=== PATIENT | male | born 1940 | race Caucasian/White ===

== ENCOUNTER 2024-05-09 13:32 | Outpatient (RCR) | payer MEDICARE, BC, SELFPAY ==
--- NOTE | 2024-04-27 15:15 | CTCSNOTE_ITS ---
[facility] [address] [place], [place] [address] CT Simulation Note Date: 04/27/2024 MR# [id number] Name: KEVIN GALVIN : 1940 (A) DIAGNOSIS: C61 Malignant neoplasm of prostate (B) Patient was placed in supine position and used vaklok for immobilization purposes. (C) CT slices included pelvis (D) VMAT Will be needed for maximum sparing of adjacent normal critical structures. (E) Patient tolerated the simulation well and left the room in good condition. Electronically signed by: Lionel Aguayo MD, CHANTELLR 04/27/2024 3:13 PM
== END 2024-05-13 23:59 | disposition home or self-care (01) ==
LOC: SCTC 13:32
PROVIDERS: PCP Family Medicine; Referring Provider Family Medicine; Visit Provider Radiology Therapeutic Radiology
DX: Z51.0 Encounter for antineoplastic radiation therapy (principal); C61 Malignant neoplasm of prostate; G89.3 Neoplasm related pain (acute) (chronic)
CPT/HCPCS: 77014; 77290; 77300; 77301; 77334; 77336; 77338; 77385

== ENCOUNTER 2024-05-23 14:22 | Outpatient (RCR) | payer MEDICARE, BC, SELFPAY ==
--- NOTE | 2024-05-23 15:35 | CTCTSUMM_ITS ---
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 (B) Concomitant Chemotherapy: No (C) Radiation Dates: 05/03/2024 through 05/09/2024 Treatment Prescription pelvis VMAT 10MV 2,000 cGy 5 400 cGy Approved (D) All garcia were treated using customized MLC Blocks (E) Finding at Discharge: Patient's pain symptoms have improved as his bowel symptoms. (F) Discharge Instructions and F/U Appt was given: The patient was also advised to continue follow-up with Dr. Lester and primary care physician: Dr. Vadim Evans. CC: Vadim Evans MD (f) [phone] Electronically signed by: Lionel Aguayo MD, DABR 05/23/2024 3:33 PM
== END 2024-06-13 23:59 | disposition home or self-care (01) ==
LOC: SCTC 14:22
PROVIDERS: PCP Family Medicine; Referring Provider Family Medicine; Visit Provider Radiology Therapeutic Radiology
DX: C61 Malignant neoplasm of prostate (principal); C79.51 Secondary malignant neoplasm of bone
CPT/HCPCS: 99212; G0463

== ENCOUNTER 2024-09-06 10:32 | Outpatient (RCR) | payer MEDICARE, BC, SELFPAY ==
--- NOTE | 2024-09-06 11:35 | CTCFLWUP_ITS ---
[facility] [address] [place], [place] [address] FOLLOW-UP NOTE Date: 09/06/2024 MR#: [id number] Name: KEVIN GALVIN : 1940 Dx: C61 Malignant neoplasm of prostate Identification. Patient with history of prostate CA treated with external beam 2016 at [facility]. Noted to be biochemically recurring underwent radical prostatectomy [facility] 10/29/2000. Showed mets and patient had XRT Group 5 (4+5 )= 9 among involved areas. Path stage [id number] PSA was 3.03 on 04/12/2023. Bone scan 05/17/[address] abdomen pelvis 05/31/2023 showed possible mets right iliac bone. Was initiated on Lupron shots May 2023 and received last dose 05/16/2024. MRI of L-spine pelvis 04/22/2024 showed mets and patient had XRT to sacral region completed 05/09/2024 with relief of symptoms. Patient currently taking Tylenol 3 3 times daily as needed Most recent lab 08/29/2024 PSA less than 0.04. Patient is experiencing some residual pain in the pelvic area but it is alleviated with Tylenol No. 3. Told that he could double up as needed. I will see him again in 4 months and decided to hold off on any more Lupron as his PSA remains low. Electronically signed by: Lionel Aguayo M.D. 09/06/2024 11:33 AM
== END 2024-09-11 23:59 | disposition home or self-care (01) ==
LOC: SCTC 10:32
PROVIDERS: PCP Family Medicine; Referring Provider Radiology Therapeutic Radiology; Visit Provider Radiology Therapeutic Radiology
DX: Z08 Encounter for follow-up examination after completed treatment for malignant neoplasm (principal); Z85.46 Personal history of malignant neoplasm of prostate; Z90.79 Acquired absence of other genital organ(s); Z92.3 Personal history of irradiation
CPT/HCPCS: 99213; G0463

== ENCOUNTER → 2025-01-15 | Outpatient (BNVA) | payer MEDICARE, BC, SELFPAY | END | disposition home or self-care (01) | PROVIDERS: PCP Family Medicine; Referring Provider Family Medicine; Visit Provider Physician Assistant | DX: C61 Malignant neoplasm of prostate (principal); N39.46 Mixed incontinence | CPT/HCPCS: Q3014 ==

== ENCOUNTER 2025-03-07 11:03 | Outpatient (RCR) | payer MEDICARE, BC, SELFPAY ==
--- NOTE | 2025-03-07 11:55 | CTCFLWUP_ITS ---
[facility] [address] [place], [place] [address] FOLLOW-UP NOTE Date: 03/07/2025 MR#: [id number] Name: KEVIN GALVIN : 1940 Dx: C61 Malignant neoplasm of prostate Identification. Patient with history of prostate CA treated with external beam 2016 at [facility]. Noted to be biochemically recurrent underwent radical cystectomy [facility] 10/29/2000. Group 5 Tarik's score 4+5 = 9 among involved areas. Path stage was pT3a N0. PSA was noted to be rising 2 years ago to 3.03. Bone scan 05/27/2003 unremarkable for mets. Received 3 Lupron injections 05/18/2023 to 02/15/2024. MRI L-spine pelvis 04/22/2024 showed bone mets. Had 2000 cGy in 5 fractions completed 05/02/2024 through 05/09/2024. To L5 sacrum area Most recent PSA less than 0.04 on 02/27/2025. Taking Tylenol 3 as needed for pain. Reeval in 6 months with the PSA. Electronically signed by: Lionel Aguayo M.D. 03/07/2025 11:53 AM
== END 2025-03-13 23:59 | disposition home or self-care (01) ==
LOC: SCTC 11:03
PROVIDERS: PCP Family Medicine; Referring Provider Radiology Therapeutic Radiology; Visit Provider Radiology Therapeutic Radiology
DX: C61 Malignant neoplasm of prostate (principal); C79.51 Secondary malignant neoplasm of bone; Z90.6 Acquired absence of other parts of urinary tract
CPT/HCPCS: 99213; G0463